=== PATIENT | male | born 1965 | race African-American/Black ===

== ENCOUNTER 2018-10-15 08:51 | Emergency (ER) | payer MEDICARE, MEDICAID ==
[~2018-10-15] VITALS: Ht 177.8 cm; Wt 87.1 kg
--- NOTE | 2018-10-15 09:22 | NUR ---
BIB SELF, DISCHARGED YESTERDAY FROM [facility] AFTER 11 DAYS, TOLD BY NEISHA THAT THEY CAN TAKE HIM TO [facility], STILL FEELING SUICIDAL BY OVERDOSING ON HIS PSYCH MEDICATIONS, NAD, TO ER BED 6, HOOKED TO MONITOR, AWAITING MD TO.
--- NOTE | 2018-10-15 09:34 | NUR ---
DR PENA AT BEDSIDE FOR EVAL.
--- NOTE | 2018-10-15 09:40 | NUR ---
URINE SAMPLE SENT TO LAB
[2018-10-15 09:43] LABS: APPEARANCE,URINE Clear (CLEAR); BILIRUBIN,URINE Negative (NEGATIVE); BLOOD, URINE Trace-intact Ery/uL (NEGATIVE); COLOR,URINE Yellow (YELLOW); KETONES,URINE Negative (NEGATIVE); LEUKOCYTE ESTERASE ,URINE Negative (NEGATIVE); NITRITE, URINE Negative (NEGATIVE); PH,URINE 5.5 (5.0-8.0); PROTEIN,URINE Negative (NEGATIVE); UGLUCOSE Negative (NEGATIVE); UROBILINOGEN,URINE 0.2 EU/dL (0.2)
[2018-10-15 09:49] LABS: BASOPHILS % (AUTO) 0.7 % (0.0-2.0); EOSINOPHILS % (AUTO) 3.3 % (0.0-6.0); HEMATOCRIT 43 % (39-51); HEMOGLOBIN 14.8 g/dL (13.5-17.5); LYMPHOCYTES # (AUTO) 1.8 /CMM (0.8-4.8); LYMPHOCYTES % (AUTO) 43.4 % (20.0-44.0); MEAN CORPUSCULAR HGB CONC 34 g/dl (31.0-36.0); MEAN CORPUSCULAR VOLUME 96 fL (80-96); MONOCYTES # (AUTO) 0.4 /CMM (0.1-1.30); MONOCYTES % (AUTO) 8.6 % (2.0-12.0); NEUTROPHILS # (AUTO) 1.9 /CMM (1.8-8.9); PLATELET COUNT (AUTO) 216 /CMM (150-450); RED BLOOD CELL COUNT(AUTO) 4.52 MIL/uL (4.5-6.0); WHITE BLOOD COUNT (AUTO) 4.2 K/uL (4.3-11.0)
[2018-10-15 09:50] LABS: BACTERIA,URINE None seen /HPF (None Seen); SQUAMOUS EPITHELIAL CELL,UR Few /HPF (None Seen); WBC,URINE 0-3 /HPF (0-3)
[2018-10-15 09:55] LABS: CALCIUM, SERUM 8.9 mg/dL (8.5-10.1); CARBON DIOXIDE 28 mmol/L (21-32); CHLORIDE 109 mmol/L (98-107); CREATININE 1.1 mg/dL (0.6-1.3); GLUCOSE 90 mg/dL (74-106); POTASSIUM 4.1 mmol/L (3.5-5.1); SODIUM SERUM 145 mmol/L (136-145); UREA NITROGEN, BLOOD 15 mg/dL (7-18)
[2018-10-15 10:03] LABS: ACETAMINOPHEN 0 ug/ml (10-30); ALANINE AMINOTRANSFERASE 29 U/L (12-78); ALBUMIN 4.1 g/dL (3.4-5.0); ALCOHOL, BLOOD < 3 mg/dL (0-0); ALKALINE PHOSPHATASE 96 U/L (46-116); ASPARTATE AMINOTRANSFERASE 16 U/L (15-37); BILIRUBIN,DIRECT 0.2 mg/dL (0.0-0.2); BILIRUBIN,TOTAL 0.7 mg/dL (0.2-1.0); SALICYLATE 2.3 mg/dL (2.8-20.0); TOTAL PROTEIN, SERUM 7.5 g/dL (6.4-8.2)
--- NOTE | 2018-10-15 12:41 | NUR ---
SPOKE TO NEISHA. THEY RECEIVED THE FAX. HE WILL BE SETTING UP TRANSPORTATION.
[2018-10-15 13:50] VITALS: BP 140/89
--- NOTE | 2018-10-15 14:01 | NUR ---
CALL FROM [facility] FOR [facility]. [phone], REPORT TO [phone]
--- NOTE | 2018-10-15 14:08 | NUR ---
REPORT GIVEN TO ANITHA HORAN FOR DILAN
--- NOTE | 2018-10-15 15:57 | NUR ---
PT LEFT [facility] TO [place] [facility] WITH 2 ALLEY TENDER. ALL PPW GIVEN TO AMBULANCE STAFF, PT LEFT IN STABLE CONDITION, PT NAD NOTED. VSS.
== END 2018-10-15 15:59 ==
LOC: ER 08:51
DX: F31.9 Bipolar disorder, unspecified (principal); R45.851 Suicidal ideations; R94.31 Abnormal electrocardiogram [ECG] [EKG]; Z60.2 Problems related to living alone
CPT/HCPCS: 36415; 80048; 80076; 80305; 80307; 81001; 85025; 93005; 99285; G0480; 81000-TC

== ENCOUNTER 2019-03-11 01:00 | Emergency (ER) | payer MEDICARE, MEDICAID ==
[~2019-03-11] VITALS: Ht 177.8 cm; Wt 86.2 kg
--- NOTE | 2019-03-11 01:22 | NUR ---
PT TO ER C/O SI WITH PLAN TO OD ON PILLS. PT TO ER BED 15 ,CHANGED INTO GOWN. SI PRECAUTIONS IMPLEMENTED. BELONGINGS REMOVED. PT VITAL SIGNS STABLE. WILL CONT TO MONITOR PT.
[2019-03-11 01:36] LABS: APPEARANCE,URINE Clear (CLEAR); BILIRUBIN,URINE SMALL (NEGATIVE); BLOOD, URINE Negative Ery/uL (NEGATIVE); COLOR,URINE Yellow (YELLOW); KETONES,URINE 40 (NEGATIVE); LEUKOCYTE ESTERASE ,URINE Negative (NEGATIVE); NITRITE, URINE Negative (NEGATIVE); PH,URINE 5.5 (5.0-8.0); PROTEIN,URINE Negative (NEGATIVE); UGLUCOSE Negative (NEGATIVE); UROBILINOGEN,URINE 0.2 EU/dL (0.2)
[2019-03-11 01:53] LABS: BASOPHILS % (AUTO) 0.5 % (0.0-2.0); EOSINOPHILS % (AUTO) 2.2 % (0.0-6.0); HEMATOCRIT 40 % (39-51); HEMOGLOBIN 13.5 g/dL (13.5-17.5); LYMPHOCYTES # (AUTO) 3.1 /CMM (0.8-4.8); LYMPHOCYTES % (AUTO) 54.8 % (20.0-44.0); MEAN CORPUSCULAR HGB CONC 34 g/dl (31.0-36.0); MEAN CORPUSCULAR VOLUME 96 fL (80-96); MONOCYTES # (AUTO) 0.5 /CMM (0.1-1.30); MONOCYTES % (AUTO) 9.4 % (2.0-12.0); NEUTROPHILS # (AUTO) 1.9 /CMM (1.8-8.9); NEUTROPHILS % (AUTO) 33.1 % (43.0-81.0); PLATELET COUNT (AUTO) 260 /CMM (150-450); RED BLOOD CELL COUNT(AUTO) 4.13 MIL/uL (4.5-6.0); WHITE BLOOD COUNT (AUTO) 5.7 K/uL (4.3-11.0)
[2019-03-11 01:59] LABS: BACTERIA,URINE Few /HPF (None Seen); RBC,URINE 0-2 /HPF (0-2); SQUAMOUS EPITHELIAL CELL,UR Rare /HPF (None Seen); WBC,URINE 0-2 /HPF (0-3)
[2019-03-11 02:01] LABS: CALCIUM, SERUM 8.8 mg/dL (8.5-10.1); CARBON DIOXIDE 30 mmol/L (21-32); CHLORIDE 104 mmol/L (98-107); CREATININE 1.4 mg/dL (0.6-1.3); GLUCOSE 101 mg/dL (74-106); POTASSIUM 3.1 mmol/L (3.5-5.1); SODIUM SERUM 143 mmol/L (136-145); UREA NITROGEN, BLOOD 10 mg/dL (7-18)
[2019-03-11 02:11] LABS: ACETAMINOPHEN 0 ug/ml (10-30); ALANINE AMINOTRANSFERASE 28 U/L (12-78); ALCOHOL, BLOOD < 3 mg/dL (0-0); ALKALINE PHOSPHATASE 88 U/L (46-116); ASPARTATE AMINOTRANSFERASE 20 U/L (15-37); BILIRUBIN,DIRECT 0.2 mg/dL (0.0-0.2); BILIRUBIN,TOTAL 0.7 mg/dL (0.2-1.0); SALICYLATE 1.7 mg/dL (2.8-20.0); TOTAL PROTEIN, SERUM 7.6 g/dL (6.4-8.2)
[2019-03-11] MEDS ORDERED: POTASSIUM CHLORIDE 20 MEQ TAB.PRT.SR PO ONE ×2 (02:30→03:04)
--- NOTE | 2019-03-11 06:02 | NUR ---
PT SLEEPING IN [place]. NO SIGNS OF DISTRESS NOTED. PT VITAL SIGNS STABLE. WILL CONT TO MONITOR PT.
[2019-03-11] MEDS ORDERED: IBUPROFEN 600 MG TABLET PO ONE ×2 (07:59→08:00)
--- NOTE | 2019-03-11 08:05 | NUR ---
[facility] CALLED,SPOKE WITH SASHA,WAITING ON A BED
--- NOTE | 2019-03-11 08:43 | NUR ---
Pt accepted by Dr. Vela to [facility]. Number for report is [phone]
--- NOTE | 2019-03-11 08:49 | NUR ---
[facility] [phone] ETA 30 MINS TRIP NUMBER [id number] PER [id number]
--- NOTE | 2019-03-11 09:00 | NUR ---
Food tray provided to patient, tolerating PO well.
[2019-03-11 09:15] VITALS: BP 145/83
--- NOTE | 2019-03-11 09:16 | NUR ---
Patient picked up by [facility] in stable condition going to [facility]. Written and verbal after care instructions given. Patient verbalizes understanding of instruction.
== END 2019-03-11 09:22 ==
LOC: ER 01:07
DX: R45.851 Suicidal ideations (principal); E87.6 Hypokalemia; F12.10 Cannabis abuse, uncomplicated; F17.200 Nicotine dependence, unspecified, uncomplicated
CPT/HCPCS: 36415; 80048; 80076; 80305; 80307; 80329; 81001; 85025; 99285; G0480; 81000-TC

== ENCOUNTER 2019-04-01 16:24 | Emergency (ER) | payer MEDICARE, MEDICAID ==
[~2019-04-01] VITALS: Ht 177.8 cm; Wt 88.9 kg
--- NOTE | 2019-04-01 17:02 | NUR ---
CAME IN FOR +SI " I WANNA OD ON MY PILLS " + HI 2 DAYS AGO, NONE TODAY PER PT. TO ER BED 11, HOOKED TO MONITOR, CHANGED TO GOWN, PROVIDED W WARM BLANKET, AWAITING MD TO.
--- NOTE | 2019-04-01 17:52 | NUR ---
PA FOSTER AT BEDSIDE
[2019-04-01 18:07] LABS: APPEARANCE,URINE Clear (CLEAR); BILIRUBIN,URINE Negative (NEGATIVE); BLOOD, URINE Negative Ery/uL (NEGATIVE); COLOR,URINE Yellow (YELLOW); KETONES,URINE 15 (NEGATIVE); LEUKOCYTE ESTERASE ,URINE Negative (NEGATIVE); NITRITE, URINE Negative (NEGATIVE); PH,URINE 5.5 (5.0-8.0); PROTEIN,URINE Negative (NEGATIVE); UGLUCOSE Negative (NEGATIVE); UROBILINOGEN,URINE 0.2 EU/dL (0.2)
[2019-04-01] MEDS ORDERED: IBUPROFEN 400 MG TABLET ONE (18:12)
[2019-04-01 18:18] LABS: BACTERIA,URINE Few /HPF (None Seen); RBC,URINE 0-2 /HPF (0-2); SQUAMOUS EPITHELIAL CELL,UR Few /HPF (None Seen)
[2019-04-01 18:19] LABS: BASOPHILS % (AUTO) 0.4 % (0.0-2.0); EOSINOPHILS % (AUTO) 0.8 % (0.0-6.0); HEMATOCRIT 38 % (39-51); LYMPHOCYTES # (AUTO) 0.6 /CMM (0.8-4.8); LYMPHOCYTES % (AUTO) 13.9 % (20.0-44.0); MEAN CORPUSCULAR HGB CONC 35 g/dl (31.0-36.0); MEAN CORPUSCULAR VOLUME 95 fL (80-96); MONOCYTES # (AUTO) 0.6 /CMM (0.1-1.30); NEUTROPHILS # (AUTO) 2.8 /CMM (1.8-8.9); NEUTROPHILS % (AUTO) 69.9 % (43.0-81.0); PLATELET COUNT (AUTO) 172 /CMM (150-450); RED BLOOD CELL COUNT(AUTO) 3.95 MIL/uL (4.5-6.0)
[2019-04-01] MEDS ORDERED: IBUPROFEN 400 MG TABLET PO ONE (18:30)
[2019-04-01 18:33] LABS: ALANINE AMINOTRANSFERASE 29 U/L (12-78); ALBUMIN 3.9 g/dL (3.4-5.0); ALCOHOL, BLOOD < 3 mg/dL (0-0); ALKALINE PHOSPHATASE 78 U/L (46-116); ASPARTATE AMINOTRANSFERASE 19 U/L (15-37); BILIRUBIN,DIRECT 0.2 mg/dL (0.0-0.2); BILIRUBIN,TOTAL 0.6 mg/dL (0.2-1.0); CALCIUM, SERUM 8.6 mg/dL (8.5-10.1); CARBON DIOXIDE 29 mmol/L (21-32); CHLORIDE 105 mmol/L (98-107); CREATININE 1.3 mg/dL (0.6-1.3); GLUCOSE 92 mg/dL (74-106); SODIUM SERUM 143 mmol/L (136-145); UREA NITROGEN, BLOOD 8 mg/dL (7-18)
[2019-04-01 18:58] LABS: ACETAMINOPHEN 0 ug/ml (10-30); SALICYLATE 2.4 mg/dL (2.8-20.0)
--- NOTE | 2019-04-01 19:30 | NUR ---
REPORT GIVEN TO CHANELL HORAN FOR DILAN
[2019-04-01 19:40] LABS: LYMPHOCYTES % (MANUAL) 18 % (16-48); MONOCYTES % (MANUAL) 9 % (0-11.0); NEUTROPHILS % (MANUAL) 73 (42-76)
--- NOTE | 2019-04-01 20:07 | NUR ---
CALLED COUNSELOR SUPERVISOR EYE GLASS FRAME POLISHER FOR EVALUATION
[2019-04-01] MEDS ORDERED: POTASSIUM CHLORIDE 20 MEQ TAB.PRT.SR PO ONE ×2 (20:28→20:30)
[2019-04-01 22:36] VITALS: BP 141/85
--- NOTE | 2019-04-01 22:48 | NUR ---
ADMITTED TO [place] AT 0700 04/02/19.
--- NOTE | 2019-04-01 23:07 | NUR ---
CALLED [facility] FOR S TRANSPORT. ETA MIDNIGHT. TRIP [id number]
--- NOTE | 2019-04-01 23:28 | NUR ---
REPORT GIVEN TO SHAI HORAN.
== END 2019-04-01 23:42 | disposition short-term general hospital (02) ==
LOC: ER 16:25
DX: R45.851 Suicidal ideations (principal); F31.9 Bipolar disorder, unspecified; F25.9 Schizoaffective disorder, unspecified; F15.10 Other stimulant abuse, uncomplicated; F17.200 Nicotine dependence, unspecified, uncomplicated; F12.10 Cannabis abuse, uncomplicated; Z60.2 Problems related to living alone
CPT/HCPCS: 36415; 80048; 80076; 80305; 80307; 80329; 81001; 85025; 99285; G0480; 81000-TC

== ENCOUNTER 2021-03-30 00:18 | Emergency (ER) | payer MEDICAID, MEDICARE ==
[~2021-03-30] VITALS: Ht 177.8 cm; Wt 72.6 kg
--- NOTE | 2021-03-30 01:40 | NUR ---
BIBS C/O HAVING SUICIDAL IDEATION WITHOUT A PLAN. PT ALERT AND ORIENTED X3 AMBULATORY WITH NON LABORED BREATHING.
[2021-03-30 02:46] LABS: BASOPHILS % (AUTO) 0.6 % (0.0-2.0); EOSINOPHILS % (AUTO) 5.9 % (0.0-6.0); HEMATOCRIT 37 % (39-51); HEMOGLOBIN 12.3 g/dL (13.5-17.5); LYMPHOCYTES # (AUTO) 2.3 K/uL (0.8-4.8); LYMPHOCYTES % (AUTO) 38.3 % (20.0-44.0); MEAN CORPUSCULAR HGB CONC 33 g/dl (31.0-36.0); MEAN CORPUSCULAR VOLUME 87 fL (80-96); MONOCYTES # (AUTO) 0.8 K/uL (0.1-1.30); MONOCYTES % (AUTO) 13.2 % (2.0-12.0); NEUTROPHILS # (AUTO) 2.6 K/uL (1.8-8.9); PLATELET COUNT (AUTO) 344 K/uL (150-450); RED BLOOD CELL COUNT(AUTO) 4.26 MIL/uL (4.5-6.0); WHITE BLOOD COUNT (AUTO) 6.1 K/uL (4.3-11.0)
[2021-03-30 02:59] LABS: ALANINE AMINOTRANSFERASE 15 U/L (12-78); ALBUMIN 3.2 g/dL (3.4-5.0); ALCOHOL, BLOOD < 3 mg/dL (0-0); ALKALINE PHOSPHATASE 83 U/L (46-116); ASPARTATE AMINOTRANSFERASE 46 U/L (15-37); BILIRUBIN,DIRECT 0.2 mg/dL (0.0-0.2); BILIRUBIN,TOTAL 0.6 mg/dL (0.2-1.0); CARBON DIOXIDE 32 mmol/L (21-32); CHLORIDE 101 mmol/L (98-107); CREATININE 1.2 mg/dL (0.6-1.3); GLUCOSE 83 mg/dL (74-106); SODIUM SERUM 139 mmol/L (136-145); TOTAL PROTEIN, SERUM 8.7 g/dL (6.4-8.2); UREA NITROGEN, BLOOD 15 mg/dL (7-18)
[2021-03-30 03:00] LABS: ACETAMINOPHEN < 2 ug/ml (10-30); CALCIUM, SERUM 8.1 mg/dL (8.5-10.1); POTASSIUM 2.9 mmol/L (3.5-5.1)
[2021-03-30] MEDS ORDERED: POTASSIUM CHLORIDE 20 MEQ TAB.PRT.SR PO ONE ×3 (04:00→04:01)
--- NOTE | 2021-03-30 04:23 | NUR ---
URINE COLLECTED AND SENT TO LAB
[2021-03-30 05:15] LABS: BILIRUBIN,URINE Negative (NEGATIVE); COLOR,URINE YELLOW (YELLOW); LEUKOCYTE ESTERASE ,URINE Negative (NEGATIVE); NITRITE, URINE Negative (NEGATIVE); PROTEIN,URINE Negative (NEGATIVE); UGLUCOSE Negative (NEGATIVE); UROBILINOGEN,URINE 0.2 EU/dL (0.2)
--- NOTE | 2021-03-30 12:05 | NUR ---
ACCEPTED AT [facility] UNDER DR MENA. REPORT GIVEN TO NURSING SOFTWARE ENGINEERING SPECIALIST GALLO. AWAITING TRANSPORT ETA.
--- NOTE | 2021-03-30 12:07 | NUR ---
CALLED TRANSPORT [facility] ETA IS 1400
[2021-03-30 12:30] VITALS: BP 122/67
--- NOTE | 2021-03-30 12:30 | NUR ---
PT PROVIDED W/ MEAL TRAY.
--- NOTE | 2021-03-30 13:46 | NUR ---
PT TRANSPORTED TO COUNTS INCLUDE 234 BEDS AT THE [facility] IN STABLE CONDITION.
== END 2021-03-30 13:48 ==
LOC: ER 00:25
DX: R45.851 Suicidal ideations (principal); E87.6 Hypokalemia; F19.10 Other psychoactive substance abuse, uncomplicated; F25.0 Schizoaffective disorder, bipolar type; Z20.822 Contact with and (suspected) exposure to COVID-19
CPT/HCPCS: 36415; 80048-TC; 80076-TC; 84132-TC; 85025-TC; C9803; G0480